=== PATIENT | female | born 2000 | race Two or more races ===

== ENCOUNTER 2020-06-21 14:19 | Outpatient (CLI) | payer OTHER | END 2020-06-21 14:37 | disposition home or self-care (01) | LOC: RAD 14:19 → MAMO-SONO 15:00 | PROVIDERS: ATTEND Obstetrics & Gynecology | DX: I10 Essential (primary) hypertension (principal); R10.2 Pelvic and perineal pain; N83.202 Unspecified ovarian cyst, left side; N83.201 Unspecified ovarian cyst, right side ==

== ENCOUNTER 2020-06-30 06:05 | Day surgery (SDC) | payer OTHER ==
[2020-06-30] MEDS ORDERED: CODE1TAB37 PO (12:36)
[2020-06-30] MEDS ORDERED: EC-NAPROSYN500 MG PO (12:37)
== END 2020-06-30 16:59 | disposition home or self-care (01) ==
LOC: CIR.AMB 06:05
PROVIDERS: ATTEND Obstetrics & Gynecology
DX: N83.291 Other ovarian cyst, right side (principal); N73.6 Female pelvic peritoneal adhesions (postinfective); Z20.828 Contact with and (suspected) exposure to other viral communicable diseases